=== PATIENT | female | born 1990 | race Caucasian/White ===

== ENCOUNTER 2017-09-22 07:57 | Emergency (ER) | payer SELFPAY ==
[2017-09-22 09:45] LABS: BASOPHILS 0 % (0-2); EOSINOPHILS 0.1 % (0-7); HEMATOCRIT 40.4 % (36.0-48.0); HEMOGLOBIN 12.7 g/dL (12-16); IMMATURE GRANULOCYTES 0.1 % (0-5); LYMPHOCYTES 3.2 % (15-50); MCH 25.2 pg (26.0-34.0); MCHC 31.4 g/dL (31.0-37.0); MCV 80.3 fL (80.0-100.0); MEAN PLATELET VOLUME 9.4 fL (7.4-10.4); MONOCYTES 3.5 % (2-11); NEUTROPHILS 93.1 % (40-80); PLATELET COUNT 254 10x3/uL (130-400); RBC 5.03 10x6/uL (4.00-5.40); RDW 14.2 % (11.5-14.5); WBC 8.1 10x3/uL (4.8-10.8)
[2017-09-22 10:08] LABS: ALBUMIN 3.6 g/dL (3.4-5.0); ALKALINE PHOSPHATASE 76 U/L (46-116); ALT (SGPT) 22 U/L (10-68); BILIRUBIN - TOTAL 0.36 mg/dL (0.2-1.3); CALC OSMOLALITY 273 mosm/kg (275-300); CALCIUM 8.6 mg/dL (8.5-10.1); CARBON DIOXIDE 24.7 mmol/L (21.0-32.0); CHLORIDE - SERUM 99 mmol/L (98-107); CREATININE - SERUM 0.7 mg/dL (0.6-1.3); GLUCOSE 146 mg/dL (74-106); LIPASE 64 U/L (73-393); POTASSIUM - SERUM 4.2 mmol/L (3.5-5.1); PROTEIN - SERUM 7.3 g/dL (6.4-8.2); SODIUM 135 mmol/L (136-145); UREA NITROGEN 16 mg/dL (7-18); eGFR NON AFRICAN AMERICAN > 90 mL/min (90-120)
[2017-09-22 11:16] LABS: APPEARANCE HAZY (CLEAR); BILIRUBIN NEGATIVE (NEGATIVE); COLOR YELLOW (YELLOW); GLUCOSE NEGATIVE (NEGATIVE); KETONE LARGE mg/dL (NEGATIVE); NITRITE NEGATIVE (NEGATIVE); PROTEIN NEGATIVE (NEGATIVE); SPECIFIC GRAVITY 1.005 (1.005-1.020); UROBILINOGEN NORMAL (NORMAL)
[2017-09-22 11:17] LABS: HCG URINE NEGATIVE (NEGATIVE)
== END 2017-09-22 12:28 | disposition home or self-care (01) ==
LOC: D.ER 07:57
PROVIDERS: Emergency Medicine
DX: R11.10 Vomiting, unspecified (principal); B34.9 Viral infection, unspecified

== ENCOUNTER 2018-03-16 01:46 | Emergency (ER) | payer MEDICAID ==
[~2018-03-16] VITALS: Ht 162.6 cm; Wt 90.9 kg
[2018-03-16 02:05] VITALS: Ht 162.6 cm; Wt 90.9 kg
[2018-03-16] MEDS ORDERED: IBUPROFEN800 MG PO (03:40)
[2018-03-16] MEDS ORDERED: HYDROCODON-ACE1 EAC7 PO (03:40)
[2018-03-16] MEDS ORDERED: AMOXICILLIN500 M1 PO (03:41)
[2018-03-16 04:05] VITALS: BP 132/79
== END 2018-03-16 03:55 | disposition home or self-care (01) ==
LOC: D.ER 01:46
DX: K02.9 Dental caries, unspecified (principal); K08.89 Other specified disorders of teeth and supporting structures

== ENCOUNTER 2018-10-22 23:05 | Emergency (ER) | payer SELFPAY ==
[~2018-10-22 23:05] MED LIST: AMOXICILLIN500 M1 PO; HYDROCODON-ACE1 EAC7 PO; IBUPROFEN800 MG PO
[2018-10-22 23:11] VITALS: Ht 162.6 cm
[2018-10-22] MEDS ORDERED: ULTRAM50 MG PO (23:32)
[2018-10-23 00:15] VITALS: BP 138/70
== END 2018-10-23 00:15 | disposition home or self-care (01) ==
LOC: D.ER 23:05
DX: M54.5 Low back pain (principal)

== ENCOUNTER 2019-08-13 02:09 | Emergency (ER) | payer SELFPAY ==
[~2019-08-13] VITALS: Ht 162.6 cm; Wt 120.0 kg
[~2019-08-13 02:09] MED LIST changes: +ULTRAM50 MG PO
[2019-08-13 02:12] VITALS: Ht 162.6 cm; Wt 120.0 kg
[2019-08-13] MEDS ORDERED: ULTRAM50 MG PO (02:19)
[2019-08-13] MEDS ORDERED: AMOXICILLIN500 M1 PO (02:19)
[2019-08-13 02:27] VITALS: BP 145/70
== END 2019-08-13 02:27 | disposition home or self-care (01) ==
LOC: D.ER 02:09
DX: K02.9 Dental caries, unspecified (principal)

== ENCOUNTER 2020-05-02 15:28 | Emergency (ER) | payer SELFPAY ==
[~2020-05-02] VITALS: Ht 162.6 cm; Wt 118.2 kg
[2020-05-02 15:36] VITALS: Ht 162.6 cm; Wt 118.2 kg
[2020-05-02] MEDS ORDERED: CYCLOBENZAPRINE10 MG PO (15:47)
[2020-05-02 16:45] VITALS: BP 142/73
== END 2020-05-02 16:45 | disposition home or self-care (01) ==
LOC: D.ER 15:28
DX: S46.912A Strain of unspecified muscle, fascia and tendon at shoulder and upper arm level, left arm, initial encounter (principal); X50.0XXA Overexertion from strenuous movement or load, initial encounter; Y93.9 Activity, unspecified; Y92.9 Unspecified place or not applicable; M25.512 Pain in left shoulder